=== PATIENT | female | born 1990 | race Caucasian/White ===

== ENCOUNTER 2020-01-14 22:37 | Inpatient (IN) | payer OTHER ==
[2020-01-14 23:12] VITALS: BMI 33.6
[2020-01-14] MEDS: Lactated Ringer's 1,000 ML IV SCH (23:50)
[2020-01-15] MEDS ORDERED: Fentanyl 4 mcg/Bup 0.1% Cadd 100 ML ONE ×2 (00:07→07:51)
[2020-01-15 00:16] LABS: Hemoglobin 13.2 g/dL (12.0-16.0); Mean Corpuscular HGB CONC 34.5 g/dL (32.0-36.0); Mean Corpuscular Hemoglobin 33.3 pg (27.0-31.0); Mean Corpuscular Volume 96.7 fL (78.0-98.0); Mean Platelet Volume 6.8 fL (7.4-10.4); Platelet Count 261 thou/uL (130-400); RBC Distribution Width 11.3 % (11.5-14.5); Red Blood Cell (RBC) Count 3.96 mill/uL (4.20-5.40)
[2020-01-15] MEDS ORDERED: Butorphanol Tartrate 1 MG/ML VIAL ONE (00:17)
[2020-01-15] MEDS ORDERED: Ondansetron PF 4 MG/2 ML Vial ONE (00:17)
[2020-01-15] MEDS ORDERED: Butorphanol Tartrate 1 MG/ML VIAL SLOW IVP PRN (00:30)
[2020-01-15] MEDS ORDERED: Promethazine HCl 25 MG/ML VIAL IM PRN ×2 (00:30→00:50)
[2020-01-15] MEDS ORDERED: hydrALAZINE 20 MG/ML VIAL SLOW IVP PRN ×2 (00:30→08:49)
[2020-01-15] MEDS ORDERED: Acetaminophen 500 MG TAB PO PRN (00:30)
[2020-01-15] MEDS ORDERED: Ondansetron PF 4 MG/2 ML Vial IVP PRN ×3 (00:30→08:49)
[2020-01-15] MEDS: Lactated Ringer's 1,000 ML IV SCH (00:38)
[2020-01-15] MEDS ORDERED: diphenhydrAMINE 50 MG/ML VIAL IVP PRN (00:50)
[2020-01-15] MEDS ORDERED: EPHEDRINE 25 MG/5 ML SYRINGE SLOW IVP PRN (00:50)
[2020-01-15] MEDS ORDERED: Acetaminophen 325 MG TAB PO PRN (00:50)
[2020-01-15] MEDS ORDERED: Naloxone HCl 0.4 mg/ml Vial IVP PRN ×2 (00:50)
[2020-01-15] MEDS ORDERED: Lactated Ringer's 500 ML IV PRN (00:50)
[2020-01-15 00:53] LABS: HBSAg Index 0.13 S/CO (0-0.99); Hep B Surf Ag Non-Reactive S/CO (NonReactive)
[2020-01-15 00:54] LABS: Syphilis Antibody Nonreactive (Nonreactive); Syphilis Antibody Index 0.03 S/CO (<1.00 Non-Reactive)
[2020-01-15] MEDS ORDERED: Communication Order-Pharmacy FS SCH (01:00)
[2020-01-15] MEDS ORDERED: Fentanyl 4 mcg/Bupivacaine 0.1% Cassette 100 ML EPIDURAL SCH (01:00)
[2020-01-15] MEDS ORDERED: Lidocaine 1% (PF) 30 ML VIAL ONE ×2 (04:11→06:56)
[2020-01-15] MEDS ORDERED: NS / Oxytocin 40 units/1000ml 1,000 ML ONE ×2 (04:11→06:56)
[2020-01-15] MEDS ORDERED: Lidocaine 2% 10 ML INJ ONE (06:55)
[2020-01-15] MEDS ORDERED: NS w/ Oxytocin 10 units 500 ML ONE (07:41)
[2020-01-15] MEDS ORDERED: Lanolin Ointment 7 GM TUBE TOP PRN (08:49)
[2020-01-15] MEDS ORDERED: diphenhydrAMINE 25 MG CAP PO PRN (08:49)
[2020-01-15] MEDS ORDERED: Milk Of Magnesia 30 ML UDCUP PO PRN (08:49)
[2020-01-15] MEDS ORDERED: Bisacodyl 10 MG SUPP PR PRN (08:49)
[2020-01-15] MEDS ORDERED: Benzocaine-Menthol 82.5 ML CAN TOP PRN (08:49)
[2020-01-15] MEDS ORDERED: Zolpidem Tartrate 5 MG TAB PO PRN (08:49)
[2020-01-15] MEDS ORDERED: Misoprostol 200 MCG TAB VAG PRN (08:49)
[2020-01-15] MEDS ORDERED: Preparation H Ointment 28 GM TUBE PR PRN (08:49)
[2020-01-15] MEDS ORDERED: HYDROcodone/Acetaminophen 5/325 mg Tablet PO PRN ×2 (08:49)
[2020-01-15] MEDS ORDERED: NS / Oxytocin 40 units/1000ml 1,000 ML IV SCH (09:00)
[2020-01-15] MEDS ORDERED: Bupivacaine/Epinephrine 0.25% 30 ML VIAL ONE (09:55)
[2020-01-15 12:27] LABS: SARS-CoV-2 MS2 Positive; SARS-CoV-2 N Gene Negative; SARS-CoV-2 S Gene Negative; SARS-CoV-2 by NAA Not Detected (NotDetected); SARS-CoV-2 orf1ab Negative
[2020-01-15] MEDS: Ibuprofen 800 MG TAB PO SCH ×2 (13:14→22:17)
[2020-01-15] MEDS: Prenatal Vitamin 1 TAB PO SCH (13:35)
[2020-01-15] MEDS: Docusate Calcium (SURFAK) 240 MG CAP PO SCH ×2 (13:35→22:17)
[2020-01-15] MEDS: Ferrous Sulfate 325 MG TAB PO SCH (16:50)
[2020-01-16 06:05] LABS: Hemoglobin 11.2 g/dL (12.0-16.0); Mean Corpuscular HGB CONC 34.1 g/dL (32.0-36.0); Mean Corpuscular Hemoglobin 34.1 pg (27.0-31.0); Mean Platelet Volume 6.6 fL (7.4-10.4); Platelet Count 196 thou/uL (130-400); RBC Distribution Width 11.6 % (11.5-14.5); Red Blood Cell (RBC) Count 3.29 mill/uL (4.20-5.40); White Blood Cell (WBC) Count 14.2 thou/uL (4.8-10.8)
[2020-01-16] MEDS: Ibuprofen 800 MG TAB PO SCH ×3 (06:16→22:18)
[2020-01-16] MEDS: Ferrous Sulfate 325 MG TAB PO SCH ×2 (08:26→18:56)
[2020-01-16] MEDS ORDERED: Adacel (T-DAP) 0.5 ML SYRINGE IM ONE (08:49)
[2020-01-16] MEDS: Prenatal Vitamin 1 TAB PO SCH (09:03)
[2020-01-16] MEDS: Docusate Calcium (SURFAK) 240 MG CAP PO SCH ×2 (09:03→22:19)
[2020-01-17] MEDS: Ibuprofen 800 MG TAB PO SCH (05:44)
[2020-01-17] MEDS: Docusate Calcium (SURFAK) 240 MG CAP PO SCH (08:17)
[2020-01-17] MEDS: Prenatal Vitamin 1 TAB PO SCH (08:17)
[2020-01-17] MEDS: Ferrous Sulfate 325 MG TAB PO SCH (08:18)
[2020-01-17 09:19] VITALS: BP 142/71; TEMP 97.7
== END 2020-01-17 11:55 | disposition home or self-care (01) | DRG 807 ==
LOC: L&D/OP 22:37 → L&D 01-15 → 3SE 01-15 11:13 → 3SW 01-15 19:05
PROVIDERS: ADMIT Obstetrics & Gynecology; ATTEND Obstetrics & Gynecology
PROC: 10E0XZZ Delivery of Products of Conception, External Approach (ICD-10-PCS; principal; 2020-01-15)
PROC: 0HQ9XZZ Repair Perineum Skin, External Approach (ICD-10-PCS; 2020-01-15)
DX: O48.0 Post-term pregnancy (principal); Z37.0 Single live birth; Z3A.40 40 weeks gestation of pregnancy; O70.0 First degree perineal laceration during delivery; Z20.828 Contact with and (suspected) exposure to other viral communicable diseases; Z88.1 Allergy status to other antibiotic agents
CPT/HCPCS: 36415; 51702; 85027; 86780; 86850; 86900; 86901; 87340; 87635; 99285; J0595; J2001; J2405; J2590; U0003

== ENCOUNTER 2021-02-22 10:28 | Outpatient (CLI) | payer OTHER | END 2021-02-22 10:29 | disposition home or self-care (01) | LOC: SCSRAD 10:28 | PROVIDERS: ATTEND Family Medicine | DX: M54.2 Cervicalgia (principal); M47.812 Spondylosis without myelopathy or radiculopathy, cervical region | CPT/HCPCS: 72052 ==